=== PATIENT | male | born 1970 | race Caucasian/White ===

== ENCOUNTER 2016-12-20 10:20 | Day surgery (SDC) | payer OTHER ==
[~2016-12-20] VITALS: Ht 185.4 cm; Wt 77.1 kg
[~2016-12-20 10:20] MED LIST: ACET325T51 PO; MESA1.2T2 PO; PRE20 PO; SUMA5SPR2 NS; Sodium Chloride LOK Flush 10 mL Syringe IV PRN; fentaNYL-PF 50 mCg/mL 2 mL Inj IVPUSH PRN
[2016-12-20 11:17] VITALS: BP 121/77; PULSE 71; RESP 14; O2SAT 98
[2016-12-20] MEDS ORDERED: LACT1CAP65 PO (11:17)
[2016-12-20] MEDS ORDERED: BUTA1CAP41 PO (11:17)
[2016-12-20] MEDS: 0.9% Sodium Chloride 1,000 ML IV SCH ×2 (11:22→12:58)
[2016-12-20 12:30] VITALS: BP 111/64; PULSE 69; RESP 16; O2SAT 98
[2016-12-20 12:40] VITALS: BP 107/61; PULSE 69; RESP 16; O2SAT 99
[2016-12-20 12:50] VITALS: BP 112/80; PULSE 69; RESP 16; O2SAT 99
--- NOTE | 2016-12-20 13:21 | ENDO ---
[address] [address] ENDOSCOPY PROCEDURE PATIENT: BRYON CLARK : 1970 MR#: [id number] ADMIT: 12/20/2016 JOB ID: [id number] DATE OF SERVICE: 12/20/2016 PROCEDURE PERFORMED: Colonoscopy. INDICATIONS: Patient with ulcerative colitis. ASA CLASSIFICATION: The patient's ASA classification is II. MALLAMPATI SCORE: Mallampati score was 2. MEDICATIONS: 1. Versed 8 mg. 2. Fentanyl 150 mcg. INSTRUMENT USED: PCF-H180AL. PREPARATION QUALITY: Fair. PROCEDURE DETAILS: After informed consent was obtained, the patient was brought into the GI suite, where he was placed on oxygen via nasal cannula and monitored with continuous pulse oximeter, telemetry, and blood pressure monitoring. A time-out was performed. Then, he was placed in the left lateral decubitus position and medications were administered for sedation. Digital rectal exam with palpation of the prostate was performed which was unremarkable. The colonoscope was then inserted into the rectum and advanced under direct visualization to the terminal ileum, which was identified by the presence of the ileocecal valve and villous appearing mucosa of the terminal ileum. Once the terminal ileum was reached, the colonoscope was withdrawn back into the rectum, as the mucosa and lumen were examined. In the rectum, retroflexion was performed. Following retroflexion, remaining air in the rectum was suctioned, and procedure was completed. FINDINGS: 1. Normal appearing terminal ileum. Multiple random biopsies were obtained. 2. Normal appearing colon mucosa from cecum to distal transverse colon. Multiple random biopsies were obtained. From the distal transverse colon to approximately 40 cm the mucosa had the appearance consistent with scarring as the mucosa appeared pale and mild stippling was noted. There was also loss of normal vascular pattern. It did not appear to be active colitis. From 40 cm to the rectum, the colon mucosa looked otherwise unremarkable. 3. Retroflexed views in the rectum were unremarkable. 4. Random biopsies were obtained throughout the colon. IMPRESSION: Scar tissue from distal transverse colon to 40 cm. Otherwise, normal exam from rectum to terminal ileum. IMPRESSION: 1. Findings in the distal transverse colon to 40 cm consistent with scarred mucosa from prior inflammation. 2. Otherwise, normal exam. RECOMMENDATIONS: 1. Await biopsy results. 2. Continue current medications. 3. Follow up in GI clinic. COMPLICATIONS: None. ESTIMATED BLOOD LOSS: Less than 5 mL. MTDD
--- NOTE | 2016-12-24 11:27 | PATH ---
SURGICAL PATHOLOGY Attending Physician:Filiberto Hooker CASE STATUS: Signed Out PATIENT NAME: BRYON CLARK PID: [id number] : 1970 DATE COLLECTED:12/20/2016 00:00 SPECIMEN: 1: Ileum, Biopsy 2: Colon, Biopsy 3: Colon, Biopsy 4: Colon, Biopsy 5: Rectum, Biopsy CLINICAL HISTORY: 1). TERMINAL ILEUM BIOPSY 2). RIGHT COLON BIOPSY 3). TRANSVERSE COLON BIOPSY 4). LEFT COLON BIOPSY 5). RECTAL BIOPSY FINAL DIAGNOSIS: 1.TERMINAL ILEUM BIOPSY: FRAGMENTS OF NORMAL SMALL BOWEL MUCOSA. Negative for granulomas. Negative for significant inflammation, dysplasia and malignancy. 2. 5.BIOPSIES FROM RIGHT COLON, TRANSVERSE COLON, LEFT COLON, AND RECTUM: FRAGMENTS OF NORMAL-APPEARING COLON MUCOSA IN ALL FOUR SPECIMENS. Negative for significant architectural distortion. Negative for significant inflammation. Negative for dysplasia and malignancy. ICD10 code R19.7 GROSS DESCRIPTION: The specimen is received in five formalin filled containers labeled with the patient's name. 1). The specimen is sublabeled "terminal ileum" and consists of a 0.4 x 0.3 x 0.3 CM portion of tissue which is entirely submitted in cassettes 1A. 2). The specimen is sublabeled "right colon" and consists of multiple portions of tissue which aggregate to 0.5 x 0.5 x 0.3 CM. The specimen is entirely submitted in cassette 2A. 3). The specimen is sublabeled "transverse colon" and consists of 5 portions of tissue which aggregate to 0.4 x 0.4 x 0.3 CM. The specimen is entirely submitted in cassette 3A. 4). The specimen is sublabeled "left colon" and consists of multiple portions of tissue which aggregate to 0.5 x 0.5 x 0.3 CM. The specimen is entirely submitted in cassette 4A. 5). The specimen is sublabeled "rectal" and consists of multiple portions of tissue which aggregate to 0.6-0.6 0.2 CM. The specimen is entirely submitted in cassette 5A. 12/21/2016 DAC MICRO DESCRIPTION: See diagnosis. ICD-9 CODES: CPT CODES: 1: 98691 2: 81084 3: 22931 4: 01746 5: 27294 Electronically Signed Out Cresencio Lima MD [facility] [address], [place] [address] Technical component performed at [facility], [address], [place], [address]
== END 2016-12-20 23:59 | disposition home or self-care (01) ==
LOC: END 10:20
PROVIDERS: ATTEND Internal Medicine Gastroenterology
DX: K62.5 Hemorrhage of anus and rectum (principal); K51.911 Ulcerative colitis, unspecified with rectal bleeding; R74.8 Abnormal levels of other serum enzymes
CPT/HCPCS: 45380; 88305; 99153; G0500; J2250; J3010; J7030